=== PATIENT | female | born 1995 | race Two or more races ===

== ENCOUNTER 2018-12-13 16:45 | Emergency (ER) | payer SELFPAY ==
[~2018-12-13] VITALS: Ht 162.6 cm; Wt 109.5 kg
[2018-12-13 16:50] VITALS: BP 163/107
--- NOTE | 2018-12-13 17:22 | NUR ---
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 PT TO L&D FROM TRIAGE. Addendum: 12/13/18 at 1724 by NANCY PT VISIBLY , DISCUSSED WITH L&D PRIOR TO TRANSPORT. SUSPECTED APPROX 8 MONTHS .
[2018-12-15] MEDS ORDERED: IBUP-1222 PO (11:23)
== END 2018-12-13 17:27 | disposition home or self-care (01) ==
LOC: ED 17:20
DX: Z02.9 Encounter for administrative examinations, unspecified (principal)

== ENCOUNTER 2020-07-28 03:54 | Emergency (ER) | payer SELFPAY ==
[~2020-07-28] VITALS: Ht 162.6 cm; Wt 121.0 kg
[~2020-07-28 03:54] MED LIST: IBUP-1222 PO
[2020-07-28 03:56] VITALS: BP 161/92
== END 2020-07-28 04:06 ==
LOC: ED 03:56
DX: R10.9 Unspecified abdominal pain (principal); Z53.21 Procedure and treatment not carried out due to patient leaving prior to being seen by health care provider

== ENCOUNTER 2020-07-28 04:11 | Inpatient (IN) | payer MEDICAID, OTHER ==
[~2020-07-28] VITALS: Ht 162.6 cm; Wt 108.0 kg
[2020-07-28 04:43] VITALS: BP 144/91
[2020-07-28 04:45] LABS: MICROSCOPIC INDICATED
[2020-07-28 04:47] LABS: BASOPHILS % (AUTO) 1 % (0-1); EOSINOPHILS % (AUTO) 1 % (1-7); LYMPHOCYTES % (AUTO) 18 % (22-44); MEAN CORPUSCULAR HEMOGLOBIN 20.6 pg (27.0-34.8); MEAN CORPUSCULAR HGB CONC 31.9 g/dL (32.4-35.8); MONOCYTES % (AUTO) 5 % (2-9); NEUTROPHILS % (AUTO) 75 % (42-75); PLATELET COUNT 502 x10^3/uL (130-400); RED BLOOD COUNT 4.66 x10^6/uL (3.82-5.3); RED CELL DISTRIBUTION WIDTH 17.9 % (9.6-15.2)
[2020-07-28 04:53] LABS: MD NO
[2020-07-28 04:58] LABS: AMPHETAMINE SCREEN, URINE Negative (Negative); BARBITURATE SCREEN, URINE Negative (Negative); BENZODIAZEPINE SCREEN, URINE Negative (Negative); CANNABINOID SCREEN, URINE Negative (Negative); COCAINE SCREEN, URINE Negative (Negative); METHADONE SCREEN, URINE Negative (Negative); OPIATE SCREEN, URINE Negative (Negative)
[2020-07-28] MEDS ORDERED: NEWBORN KIT ONE (04:59)
[2020-07-28] MEDS ORDERED: OXYTOCIN 30U/ 0.9% NaCL 500ML 0 ML ONE (05:00)
[2020-07-28 05:01] LABS: ALANINE AMINOTRANSFERASE 10 U/L (12-78); ALBUMIN 2.2 g/dL (3.4-5.0); ANION GAP 11 mmol/L (5-15); CALCIUM 8.1 mg/dL (8.5-10.1); CHLORIDE 108 mmol/L (98-107)
[2020-07-28 05:03] LABS: ALKALINE PHOSPHATASE 144 U/L (45-117); BILIRUBIN,TOTAL 0.2 mg/dL (0.2-1.0)
[2020-07-28 05:03] LABS: PROTEIN/CREATININE RATIO,URINE 366 (0-200); TOTAL PROTEIN,URINE RANDOM 78 mg/dL (0-12)
[2020-07-28 05:07] LABS: BILIRUBIN, DIRECT < 0.1 mg/dL (0.1-0.2)
[2020-07-28] MEDS ORDERED: FENTANYL PF 100 MCG/2ML ONE (05:13)
[2020-07-28] MEDS ORDERED: LIDOCAINE 1%, 20ML ONE (05:19)
[2020-07-28] MEDS ORDERED: MISOPROSTOL 200 MCG TABLET ONE (05:20)
[2020-07-28] MEDS ORDERED: OXYTOCIN 30U/ 0.9% NaCL 500ML 500 ML ONE (05:20)
[2020-07-28] MEDS ORDERED: SODIUM CITRATE/CITRIC ACID 30 ML UDC PO PRN (05:30)
[2020-07-28] MEDS ORDERED: ONDANSETRON 2MG/ML, 2ML IVPush PRN (05:30)
[2020-07-28] MEDS ORDERED: TERBUTALINE 1 MG/ML, 1ML SQ PRN (05:30)
[2020-07-28] MEDS ORDERED: FENTANYL PF 100 MCG/2ML IVPush PRN (05:30)
[2020-07-28] MEDS ORDERED: OXYTOCIN 30U/ 0.9% NaCL 500ML 500 ML IV ONE (05:30)
[2020-07-28] MEDS ORDERED: FENTANYL PF 100 MCG/2ML IV PRN (05:30)
[2020-07-28] MEDS ORDERED: TERBUTALINE 1 MG/ML, 1ML IVPush PRN (05:30)
[2020-07-28] MEDS ORDERED: PENICILLIN GK 5,000,000 UNITS in DEXTROSE 5% 100 ML IVPB ONE (05:30)
[2020-07-28] MEDS ORDERED: D5%-LACTATED RINGERS 1,000 ML IV SCH (05:30)
[2020-07-28] MEDS ORDERED: METOCLOPRAMIDE 5 MG/ML, 2ML IVPush PRN (05:30)
[2020-07-28] MEDS ORDERED: PLEASE ENTER HEIGHT AND WEIGHT MC SCH (05:30)
[2020-07-28] MEDS ORDERED: LACTATED RINGERS 1,000 ML IV SCH (05:30)
[2020-07-28] MEDS ORDERED: OXYTOCIN 30U/ 0.9% NaCL 500ML 500 ML IV PRN (06:00)
[2020-07-28] MEDS: OXYTOCIN 30U/ 0.9% NaCL 500ML 500 ML IV SCH ×6 (07:42→18:00)
[2020-07-28] MEDS ORDERED: SIMETHICONE 80 MG CHEW TAB PO PRN (08:00)
[2020-07-28] MEDS ORDERED: OXYcodone IR 5MG TABLET PO PRN (08:00)
[2020-07-28] MEDS ORDERED: OXYcodone/APAP 5/325MG TABLET PO PRN (08:00)
[2020-07-28] MEDS ORDERED: RHOGAM FROM BLOOD BANK 1 NOTE EA IM/IV ONE (08:00)
[2020-07-28] MEDS ORDERED: MISOPROSTOL 200 MCG TABLET PR PRN (08:00)
[2020-07-28] MEDS ORDERED: ACETAMINOPHEN 325 MG TABLET PO PRN ×2 (08:00)
[2020-07-28] MEDS ORDERED: DOCUSATE 100 MG CAPSULE PO PRN (08:00)
[2020-07-28] MEDS ORDERED: IBUPROFEN 600 MG TABLET PO PRN (08:00)
[2020-07-28] MEDS ORDERED: PENICILLIN GK 2,500,000 UNITS in DEXTROSE 5% 100 ML IVPB SCH (10:00)
[2020-07-28] MEDS: PRENATAL VIT/IRON/FA 1 EACH TABLET PO SCH (10:11)
[2020-07-28 10:14] VITALS: BP 136/83
[2020-07-28 16:05] VITALS: BP 120/80
[2020-07-28 16:09] LABS: BASOPHILS % (AUTO) 1 % (0-1); EOSINOPHILS % (AUTO) 1 % (1-7); LYMPHOCYTES % (AUTO) 13 % (22-44); MEAN CORPUSCULAR HEMOGLOBIN 20.2 pg (27.0-34.8); MEAN CORPUSCULAR HGB CONC 31.2 g/dL (32.4-35.8); MEAN PLATELET VOLUME 7.2 fL (7.4-10.4); MONOCYTES % (AUTO) 6 % (2-9); NEUTROPHILS % (AUTO) 79 % (42-75); PLATELET COUNT 437 x10^3/uL (130-400); RED BLOOD COUNT 4.39 x10^6/uL (3.82-5.3); RED CELL DISTRIBUTION WIDTH 17.6 % (9.6-15.2)
[2020-07-28 16:11] LABS: MD NO
[2020-07-28] MEDS ORDERED: DIPH,PERTUSS(ACELL),TET VAC/PF NC IM-VACC ONE ×2 (18:27→18:30)
[2020-07-28 19:50] VITALS: BP 124/84
[2020-07-29 00:10] VITALS: BP 132/85
[2020-07-29] MEDS: OXYTOCIN 30U/ 0.9% NaCL 500ML 500 ML IV SCH ×2 (04:00→14:00)
[2020-07-29 06:00] VITALS: BP 132/83
[2020-07-29 07:22] VITALS: BP 128/82
[2020-07-29] MEDS: PRENATAL VIT/IRON/FA 1 EACH TABLET PO SCH (07:42)
[2020-07-29] MEDS ORDERED: FLU VACC QS2020-21(6MOS UP)/PF 60MCG/0.5 ML SYR IM ONE ×2 (13:00→13:30)
[2020-07-29 19:36] VITALS: BP 133/89
[2020-07-30 04:36] VITALS: BP 126/83
[2020-07-30 08:00] VITALS: BP 140/93
[2020-07-30] MEDS ORDERED: MEASLES,MUMPS&RUBELLA VACC/PF 0.5 ML SQ-VACC ONE ×2 (08:37→09:00)
[2020-07-30] MEDS: PRENATAL VIT/IRON/FA 1 EACH TABLET PO SCH (09:00)
[2020-07-30] MEDS: OXYTOCIN 30U/ 0.9% NaCL 500ML 500 ML IV SCH ×2 (10:00)
[2020-07-30 12:00] VITALS: BP 135/96
== END 2020-07-30 11:45 | disposition home or self-care (01) | DRG 807 ==
LOC: LDOP 04:11 → LDIP 05:03 → 2NW 09:19
PROVIDERS: ADMIT Obstetrics & Gynecology; ATTEND Obstetrics & Gynecology
PROC: 10E0XZZ Delivery of Products of Conception, External Approach (ICD-10-PCS; principal; 2020-07-28)
PROC: 10907ZC Drainage of Amniotic Fluid, Therapeutic from Products of Conception, Via Natural or Artificial Opening (ICD-10-PCS; 2020-07-28)
PROC: 0HQ9XZZ Repair Perineum Skin, External Approach (ICD-10-PCS; 2020-07-28)
PROC: 3E0234Z Introduction of Serum, Toxoid and Vaccine into Muscle, Percutaneous Approach (ICD-10-PCS; 2020-07-29)
DX: O70.0 First degree perineal laceration during delivery (principal); Z37.0 Single live birth; D50.9 Iron deficiency anemia, unspecified; Z3A.37 37 weeks gestation of pregnancy; Z23 Encounter for immunization; Z20.822 Contact with and (suspected) exposure to COVID-19
CPT/HCPCS: 36415; 76805; 80053; 80307; 81001; 82248; 82570; 84156; 84550; 85025; 86592; 86762; 86850; 86900; 87081; 87340; 87635; 87806; 90686; 90715; G0378; J2540; J3010; G0475; J2590; J7120